=== PATIENT | male | born 1975 | race Caucasian/White ===

== ENCOUNTER → 2020-11-06 | Outpatient (CLI) | payer OTHER ==
[~2020-11-06] MED LIST: IOPAMIDOL 370 MG/ML 200 ML INFUS..BTL INJ ONE; SODIUM CHLORIDE 0.9% 100 ML ONE
== END ==
LOC: CT 07:37
PROVIDERS: ATTEND Internal Medicine Interventional Cardiology
DX: Q25.1 Coarctation of aorta (principal)
CPT/HCPCS: 71275; J7050; Q9967